=== PATIENT | male | born 1965 | race Caucasian/White ===

== ENCOUNTER 2017-05-28 08:25 | Emergency (ER) | payer MEDICARE, MEDICAID ==
[~2017-05-28] VITALS: Ht 160 cm; Wt 88.9 kg
[2017-05-28] MEDS ORDERED: METOPROLOL SUC100 M2 PO (08:41)
--- NOTE | 2017-05-28 08:48 | Emergency Room Report ---
History of Present Illness Time Seen by MD Linder Presenting Problem in Triage Pt arrived:Walked Presenting Problem:States he emptied his urinary catheter this morning about 2am and states it has not been draining since. Onset of symptoms date/time:/ or onset unknown for:MEDICAL HX UNKNOWN Treatment Prior to Arrival: [employer] Provided by: Sepsis Risk Assessment: Temp: 98.0 B/P: 148/79 MAP: 102 Pulse: 94 Resp: 18 Recent fever? N Clinical Suspician of Infection? N Mental Status: 1 - Regular (Normal Baseline) Sepsis Risk:Low Sepsis Risk Have you (or family members/close friends) recently traveled outside the [place]? N If Yes, where/when: Have you had exposure to infectious disease within the past month? N TB? Other? Specify: Comment States has a chronic indwelling Crhis catheter for a couple of years, changed monthly. It has not drained since about 2 AM. He has some suprapubic discomfort. Last changed about one month ago. Eating and drinking normally, no other complaints. ALLERGIES Coded Allergies: Sulfa (Sulfonamide Antibiotics) (05/28/17) Home Medications Reported Medications Metoprolol Succinate (Metoprolol Succinate XL) 100 MG PO BID #60 History Medical History General CAD? No Angina: No DC: No Hypertension? No Hyperlipidemia? No CHF? No DVT? No PE? No COPD? No Asthma? No Anemia? No GERD? No Gastric ulcers? No GI Bleed? No Hernia? No Thyroid Problems? No Hypothyroidism? No CVA? No Seizures? No Diabetes? No Renal Insuffiency? No End Stage Renal Disease? No UTI? No Stones? No BPH? Yes GB Disease: No Nephritic Syndrome? No Asplenia? No Hepatitis? No Sickle Cell Disease? No Arthritis? No Migraines? No Cataracts? No Glaucoma? No MRSA? No HIV? No TB? No Anxiety? No Depression? No Cancer? Yes Site: colon More? Yes Additional hx: Urinary catheter x 2 years due to colon cancer/ also ostomy Immunization Hx DT/Tetanus Unknown Surgical Hx Previous Surgery?Y coloctomy nerve sheath tumor rem Social History Smoking Hx Smoker: Former Smoker Tobacco: No Type Cigarettes Alcohol Alcohol: No Review of Systems All Other Systems Reviewed and Negative Constitutional denies fever Gastrointestinal abdominal pain Genitourinary see HPI. Physical Exam Vital Signs Vital Signs Date Time Temp Pulse Resp B/P Pulse O2 O2 Flow FiO2 Ox Delivery Rate 05/28 1047 91 18 142/79 98 05/28 0943 98.0 94 18 148/82 96 05/28 0829 98.0 94 18 148/79 96 General Appearance normal appearance, no apparent distress Respiratory Status No: respiratory distress. Cardiovascular regular rate/rhythm Gastrointestinal tenderness (suprapubic), colostomy Male Genitalia Chris catheter present. Small amount of urine in his leg bag. No edema or erythema of genitalia. Neurologic alert, oriented x 3 Medical Decision Making LABS/Meds/Orders Pt receiving controlled substance in ED? No Results/Orders Laboratory Tests 05/28/17 0935: Urine Color YELLOW, Urine Appearance TURBID, Urine pH 8.5, Ur Specific [place] 1.015, Urine Protein 2+ H, Urine Ketones NEGATIVE, Urine Blood 2+ H, Urine Nitrate POSITIVE H, Urine Bilirubin NEGATIVE, Urine Urobilinogen 1.0, Ur Leukocyte Esterase 3+ H, Urine WBC 20-50, Uric Acid Crystals OCC, Urine Bacteria 4+, Urine Glucose NEGATIVE Orders Procedure Date/time Status CULTURE, URINE 05/28 09 Active URINARY CATHETER INSERT 05/28 08 Active URINALYSIS/COMPLETE 05/28 853 Complete Departure Departure Disposition DC Home or Self Care(routine) Clinical Impression Primary Impression: Malfunction of Chris catheter Qualifiers: Encounter type: initial encounter Qualified Code: T83.011A - Breakdown (mechanical) of indwelling urethral catheter, initial encounter Secondary Impressions: Acute urinary retention, Cystitis Condition STABLE Patient Instructions DI for Urinary Tract Infection (UTI), How to Care for Your Chris Catheter -- Male Additional Instructions Additional instructions for URINARY TRACT INFECTION: See your physician as soon as possible for further evaluation. Return immediately if you have an uncontrollable fever greater than 102 degrees, severe back or abdominal pain, inability to urinate, or repetetive vomiting. Prescriptions Current Visit Scripts Ciprofloxacin HCl (Cipro 500MG TAB) 500 MG PO BID #20 TAB ED Critical Care Critical Care No at 1304
[2017-05-28 09:40] LABS: URINE BILIRUBIN - DIPSTICK NEGATIVE (NEG); URINE BLOOD 2+ (NEG)
[2017-05-28] MEDS ORDERED: CIPRO 500MG TA500 MG PO (10:12)
[2017-05-28 10:47] VITALS: BP 142/79
== END 2017-05-28 10:48 | disposition home or self-care (01) ==
LOC: ER 08:25
PROVIDERS: Emergency Medicine
PROC: 0T2BX0Z Change Drainage Device in Bladder, External Approach (ICD-10-PCS; principal; 2017-05-28)
DX: T83.011A Breakdown (mechanical) of indwelling urethral catheter, initial encounter (principal); R33.9 Retention of urine, unspecified; N30.00 Acute cystitis without hematuria